=== PATIENT | male | born 1980 | race Two or more races ===

== ENCOUNTER 2017-01-07 21:19 | Emergency (ER) | payer MEDICAID ==
[~2017-01-07] VITALS: Ht 180.3 cm; Wt 122.5 kg
[~2017-01-07 21:19] MED LIST: ALB5IS NEB; ALBU1.257; LEVAAER4 IN
[2017-01-07 21:40] VITALS: BP 152/100
[2017-01-07] MEDS ORDERED: ALBUTEROL SULF 2.5 MG/0.5ML(0.5%) NEB SOLN NEB ONE (21:45)
[2017-01-07] MEDS ORDERED: IPRATROPIUM BROM 0.5 MG/2.5ML INH SOL NEB ONE (21:45)
== END 2017-01-07 22:43 | disposition home or self-care (01) ==
LOC: ER 21:23
DX: J45.901 Unspecified asthma with (acute) exacerbation (principal); J18.9 Pneumonia, unspecified organism
CPT/HCPCS: 71020; 94640

== ENCOUNTER 2017-03-14 10:43 | Emergency (ER) | payer MEDICAID ==
[~2017-03-14] VITALS: Ht 180.3 cm; Wt 120.2 kg
[2017-03-14 11:19] VITALS: BP 140/97
== END 2017-03-14 11:51 | disposition home or self-care (01) ==
LOC: ER 10:45
DX: S62.631A Displaced fracture of distal phalanx of left index finger, initial encounter for closed fracture (principal); J45.909 Unspecified asthma, uncomplicated; W27.8XXA Contact with other nonpowered hand tool, initial encounter; Y93.89 Activity, other specified; Y99.8 Other external cause status; Y92.89 Other specified places as the place of occurrence of the external cause
CPT/HCPCS: 29130; 73140